=== PATIENT | female | born 2000 | race Caucasian/White ===

== ENCOUNTER 2022-03-21 01:33 | Emergency (ER) | payer MEDICAID, OTHER ==
[~2022-03-21] VITALS: Ht 154.9 cm; Wt 62.9 kg
[2022-03-21] MEDS ORDERED: ROBI1LIQ9 PO (01:38)
[2022-03-21] MEDS ORDERED: PSEU120T19 PO (06:17)
[2022-03-21 06:41] VITALS: BP 119/58
== END 2022-03-21 06:43 | disposition home or self-care (01) ==
LOC: M ED 01:33
DX: J02.9 Acute pharyngitis, unspecified (principal); R05.9 Cough, unspecified